=== PATIENT | female | born 2000 | race Caucasian/White ===

== ENCOUNTER 2021-01-18 04:47 | Emergency (ER) | payer BC ==
[~2021-01-18] VITALS: Ht 167.6 cm; Wt 56.8 kg
[2021-01-18 05:14] VITALS: TEMP 98.2
[2021-01-18 05:39] LABS: COLLECTION METHOD CLEAN CATCH
[2021-01-18 05:41] LABS: BASO # 0.1 (0.0-0.2); BASO % 0.4 % (0.0-2.0); EOS # 0.1 (0.0-0.7); EOS % 0.5 % (0-4.0); GRAN # 15.6 (1.4-6.5); GRAN % 85.8 % (42.2-75.2); HEMATOCRIT 39.3 % (35.0-45.0); LYMPH # 1.4 (1.2-3.4); LYMPH % 7.5 % (20.0-51.0); MEAN CELL VOLUME 91 fl (80.0-95.0); MEAN CORPUSCULAR HEMOGLOBIN 30 pg (26.0-32.0); MEAN CORPUSCULAR HGB CONC 33 g/dl (33.0-37.0); MEAN PLATELET VOLUME 9.7 fl (7.4-10.4); MONO % 5.4 % (1.7-9.3); PLATELET COUNT 302 K/mm3 (130-400); RED BLOOD COUNT 4.34 M/mm3 (4.10-5.30); REDCELL DISTRIBUTION WIDTH-CV 12.3 % (11.5-14.5)
[2021-01-18 05:50] LABS: MUCOUS Present /lpf; PH 5 (5-8); URINE APPEARANCE Clear; URINE BACTERIA None Seen /hpf; URINE BILIRUBIN Negative (NEGATIVE); URINE BLOOD Negative (NEGATIVE); URINE COLOR Amber; URINE GLUCOSE Negative (NEGATIVE); URINE KETONE Negative (NEGATIVE); URINE LEUKOCYTE ESTERASE Negative (NEGATIVE); URINE NITRATE Positive (NEGATIVE); URINE PROTEIN(semi-quant) Negative (NEGATIVE); URINE RBC 0-2 /hpf; URINE UROBILINOGEN >=4.0 mg/dL (NEGATIVE)
[2021-01-18 05:54] LABS: ALBUMIN 4.3 gm/dL (3.5-5.0); BILIRUBIN,TOTAL 0.6 mg/dL (0.0-1.0); C-REACTIVE PROTEIN 0.7 mg/dL (0.0-0.9); CALCIUM 8.8 mg/dL (8.4-10.2); CREATININE, serum 0.78 (0.52-1.25); POTASSIUM 3.8 mmol/L (3.4-5.0)
[2021-01-18 07:22] VITALS: BP 105/68
[2021-01-18] MEDS ORDERED: MACROBID 1100 MG/CAP PO (07:38)
[2021-01-18 07:57] VITALS: PULSE 86
[2021-01-18] MEDS ORDERED: CIPRO 500MG TA500 MG PO (22:01)
== END 2021-01-18 07:57 | disposition home or self-care (01) ==
LOC: COL.ER 04:47
PROVIDERS: Emergency Medicine
DX: D72.829 Elevated white blood cell count, unspecified (principal); M79.10 Myalgia, unspecified site; F17.290 Nicotine dependence, other tobacco product, uncomplicated; Z20.822 Contact with and (suspected) exposure to COVID-19; Z32.02 Encounter for pregnancy test, result negative
CPT/HCPCS: J0696; J1885; J3010; J7030; Q9967

== ENCOUNTER 2021-01-18 20:23 | Emergency (ER) | payer BC ==
[~2021-01-18] VITALS: Ht 167.6 cm; Wt 56.8 kg
[~2021-01-18 20:23] MED LIST: MACROBID 1100 MG/CAP PO
[2021-01-18 20:30] VITALS: TEMP 97.2
[2021-01-18 21:05] LABS: BASO % 0.3 % (0.0-2.0); EOS # 0.2 (0.0-0.7); EOS % 1.5 % (0-4.0); GRAN # 9.2 (1.4-6.5); HEMOGLOBIN 12.1 g/dl (12.0-15.0); LYMPH # 1.3 (1.2-3.4); LYMPH % 11.2 % (20.0-51.0); MEAN CELL VOLUME 90 fl (80.0-95.0); MEAN CORPUSCULAR HEMOGLOBIN 30 pg (26.0-32.0); MEAN CORPUSCULAR HGB CONC 33 g/dl (33.0-37.0); MEAN PLATELET VOLUME 9.8 fl (7.4-10.4); MONO % 8.7 % (1.7-9.3); PLATELET COUNT 289 K/mm3 (130-400); RED BLOOD COUNT 4.05 M/mm3 (4.10-5.30); REDCELL DISTRIBUTION WIDTH-CV 12.3 % (11.5-14.5)
[2021-01-18 21:06] LABS: HEMATOCRIT 36.4 % (35.0-45.0)
[2021-01-18 21:15] LABS: ALBUMIN 3.8 gm/dL (3.5-5.0); BILIRUBIN,TOTAL 0.3 mg/dL (0.0-1.0); CALCIUM 8.4 mg/dL (8.4-10.2); CREATININE, serum 0.8 (0.52-1.25); POTASSIUM 4.3 mmol/L (3.4-5.0); TOTAL PROTEIN 6.5 gm/dL (6.4-8.2)
[2021-01-18] MEDS ORDERED: CIPRO 500MG TA500 MG PO (22:01)
[2021-01-18 22:10] VITALS: BP 115/76; PULSE 84
== END 2021-01-18 22:10 | disposition home or self-care (01) ==
LOC: COL.ER 20:23
PROVIDERS: Emergency Medicine
DX: N12 Tubulo-interstitial nephritis, not specified as acute or chronic (principal)
CPT/HCPCS: J1885; J2270; J7030